=== PATIENT | female | born 1965 | race Caucasian/White ===

== ENCOUNTER → 2024-05-29 | Outpatient (CLI) | payer MEDICARE, MEDICAID, SELFPAY ==
[2024-05-29 11:21] LABS: Basophils % (Auto) 1 % (0-2.5); Eosinophils # (Auto) 0.3 Thou/mm3 (0.0-0.5); Eosinophils % (Auto) 4 % (0-10); Hematocrit 34.4 % (36.0-46.0); Hemoglobin 10.3 g/dL (12.0-16.0); Immature Granulocytes % (Auto) 0 % (0-0); Immature Granulocytes Auto 0.02 Thou/mm3 (0.00-0.00); Lymphocytes # (Auto) 2.1 Thou/mm3 (1.0-4.8); Lymphocytes % (Auto) 31 % (10-50); Mean Corpuscular HGB Conc 29.9 g/dl (31.0-37.0); Mean Corpuscular Hemoglobin 21.6 pg (25.0-35.0); Mean Corpuscular Volume 72 fL (80-100); Monocytes # (Auto) 0.3 Thou/mm3 (0.0-0.8); Monocytes % (Auto) 5 % (0-12); Neutrophils % (Auto) 59 % (37-80); Nucleated Red Blood Cell % 0 /100 WBC (0); Platelet Count 240 Thou/mm3 (140-440); RDW Standard Deviation 45.3 fL (36.4-46.3); Red Blood Count 4.76 Miln/mm3 (4.00-5.20); White Blood Count 6.7 Thou/mm3 (3.6-11.0)
[2024-05-29 11:42] LABS: Collection Type, Urine Clean Catch
[2024-05-29 11:47] LABS: Glucose Estimated Average 214 mg/dL (80-131); Hemoglobin A1C 9.1 % Hgb (4.8-6.0)
[2024-05-29 12:05] LABS: Bilirubin,Urine Negative (Negative); Blood,Urine Negative (Negative); Clarity,Urine Clear (Clear/Hazy); Color,Urine Lt-Yellow (Lt Yel-Yel); Glucose, Urine 2+ (Negative); Hyaline Casts,Urine < 1 /hpf (0-1); Ketones,Urine Negative (Negative); Leukocyte Esterase,Urine Positive (Negative); Nitrite,Urine Negative (Negative); PH,Urine 6.5 (5.0-7.0); Protein,Urine 2+ (Neg - Trace); RBC,Urine 3 /hpf (0-3); Squamous Epithelial Cell,Urine 1 /hpf (0-5); Urobilinogen,Urine Negative mg/dL (0.0-1.0); WBC,Urine 10 /hpf (0-5)
[2024-05-29 12:10] LABS: Anion Gap 6 (7-16); BUN/Creatinine Ratio 13 Ratio (12-20); Blood Urea Nitrogen 13 mg/dL (9-23); Carbon Dioxide 29.5 mMol/L (20.0-31.0); Chloride 105 mMol/L (98-107); Glucose 226 mg/dL (74-106); Potassium 3.8 mMol/L (3.4-5.1); Sodium 140 mMol/L (136-145); eGFR > 60 See Note
[2024-05-29 12:11] LABS: Alanine Aminotransferase 7 U/L (10-49); Albumin, Serum 3.4 gm/dL (3.5-5.0); Albumin/Globulin Ratio 1.5 (1.2-2.2); Alkaline Phosphatase 102 U/L (46-116); Aspartate Amino Transferase 10 U/L (0-34); Bilirubin,Total < 0.2 mg/dL (0.3-1.2); Calcium 8.6 mg/dL (8.3-10.6); Calcium (Corrected) 9.1 mg/dL (8.5-10.1); Cardiac Risk Estimate 6.1 RATIO (3.7-5.6); Cholesterol 291 mg/dL (132-200); Globulin 2.3 gm/dL (2.3-3.5); HDL Cholesterol 48 mg/dL (40-60); LDL Cholesterol,Calculated 203 mg/dL (0-130); Osmolality,Calculated 286 (275-295); Total Protein 5.7 gm/dL (5.7-8.2); Triglycerides 202 mg/dL (30-150)
[2024-05-29 12:18] LABS: Creatinine MALB Rnd Ur 45 mg/dL (30-125)
[2024-05-29 12:30] LABS: Microalbumin Creat Ratio 2684 mg/gCrea (<30); Microalbumin, Random Urine 1208 mg/L (0-300)
== END | disposition home or self-care (01) ==
LOC: COPL 10:52
PROVIDERS: PCP Family Medicine; Referring Provider Family Medicine; Visit Provider Family Medicine
DX: Z00.00 Encounter for general adult medical examination without abnormal findings (principal); E11.59 Type 2 diabetes mellitus with other circulatory complications; E78.2 Mixed hyperlipidemia; I10 Essential (primary) hypertension
CPT/HCPCS: 36415; 80053; 80061; 81001; 82043; 82570; 83036; 85025

== ENCOUNTER → 2024-05-29 | Outpatient (CLI) | payer MEDICARE, MEDICAID, SELFPAY ==
--- NOTE | 2024-05-29 13:30 | XR_ITS ---
Examination: Screening digital mammography, bilateral Computer aided detection 3-D breast Tomosynthesis, bilateral Date and time of exam: 05/29/2024, 1:16 PM Comparisons: 10/15/2017 Indications: Screening Technique: Nonmagnified MLO, CC views of the breasts to been obtained, reconstructed from 3-D Tomosynthesis images. R2 computer aided detection program utilized for evaluation of suspicious masses and/or abnormal calcifications. 3-D Tomosynthesis images obtained. Technologist: Findings: There are scattered areas of fibroglandular density. No evidence of abnormal masses or suspicious calcifications. Impression: BI-RADS category 1: Negative findings (within normal) Recommend 1 year follow-up mammogram
== END | disposition home or self-care (01) ==
PROVIDERS: PCP Family Medicine; Referring Provider Family Medicine; Visit Provider Family Medicine
DX: Z12.31 Encounter for screening mammogram for malignant neoplasm of breast (principal); R92.313 Mammographic fatty tissue density, bilateral breasts
CPT/HCPCS: 77063; 77067

== ENCOUNTER → 2024-06-24 | Outpatient (CLI) | payer MEDICARE, MEDICAID, SELFPAY ==
--- NOTE | 2024-06-24 10:47 | XR_ITS ---
Examination: Lumbar spine, 5 views Technique: Lumbar spine AP, lateral, coned lateral lower lumbar spine, bilateral obliques 5 views Exam date and time: June 25, 2019 5:11 AM Indications: Patient fell 3 months ago with injury to lower back, lower back pain. Findings: Moderate diffuse facet arthropathy. Satisfactory alignment lumbar vertebral bodies. No lumbar fracture. Moderate disc narrowing [id number] Impression: No lumbar fracture
--- NOTE | 2024-06-24 10:47 | XR_ITS ---
EXAMINATION: Cervical spine, 5 views Technique: Cervical spine AP, AP odontoid, lateral, bilateral obliques, 5 views Exam date and time: June 24, 2024 1103 hours Indications: Patient fell 3 months ago with injury to the neck, neck pain Findings: Adequate alignment cervical vertebral bodies on the lateral view No cervical fracture Intact odontoid No cervical disc narrowing Oblique films are suboptimal Impression: No cervical fracture
== END | disposition home or self-care (01) ==
PROVIDERS: PCP Family Medicine; Referring Provider Family Medicine; Visit Provider Family Medicine
DX: S39.92XA Unspecified injury of lower back, initial encounter (principal); S19.9XXA Unspecified injury of neck, initial encounter; W19.XXXA Unspecified fall, initial encounter
CPT/HCPCS: 72050; 72110